=== PATIENT | female | born 1945 | race African-American/Black ===

== ENCOUNTER 2021-12-01 10:03 | Outpatient (REF) | payer OTHER, SELFPAY ==
[2021-12-01 10:27] LABS: MANUAL DIFF FLAG NO
[2021-12-01 10:46] LABS: Basophils Percent Auto 0.4 % (0-2); Eosinophils Absolute Auto 0.1 X10*3/uL (0.0-0.4); Eosinophils Percent Auto 1.5 % (0-4); Hematocrit 43.7 % (37.0-47.0); Hemoglobin 14.3 g/dl (12.0-16.0); Imm Gran Abs Auto 0.02 X10*3/uL (0.00-0.03); Imm Gran Pct Auto 0.4 % (0.0-0.4); Lymphocytes Absolute Auto 2.4 X10*3/uL (1.2-4.9); Lymphocytes Percent Auto 43.8 % (20-40); Mean Corpuscular HGB Conc 32.7 g/dl (31.0-35.0); Mean Corpuscular Hemoglobin 28.5 pg (27.0-33.0); Mean Corpuscular Volume 87.2 fL (80.0-98.0); Mean Platelet Volume 10.7 fL (9.4-12.3); Monocytes Absolute Auto 0.3 X10*3/uL (0.1-1.2); Monocytes Percent Auto 6.3 % (2-11); Neutrophils Absolute Auto 2.6 x10*3/uL (2.0-8.3); Neutrophils Percent Auto 47.6 % (45-73); Platelet Count 235 X10*3/uL (160-400); Red Blood Count 5.01 X10*6/uL (4.20-5.50); Red Cell Distribution Width 12.8 % (11.0-16.0); White Blood Count 5.4 X10*3/uL (4.8-10.8)
[2021-12-01 11:21] LABS: Alanine Aminotransferase 33 U/L (0-31); Alkaline Phosphatase 130 U/L (39-117); Anion Gap 13 (12-20); Aspartate Amino Transferase 24 U/L (5-31); Bilirubin Total 0.7 mg/dL (0.0-1.0); Blood Urea Nitrogen 16 mg/dL (9-16); Calcium 9.6 mg/dL (8.4-10.2); Carbon Dioxide 26 mmol/L (22-29); Chloride 107 mmol/L (96-108); Cholesterol 239 mg/dL; Estimated Glomerular Filt Rate > 60; Glucose Fasting 120 mg/dL (60-99); HDL Cholesterol 42 mg/dL; LDL Cholesterol Calculated 166 mg/dl; Potassium 4.8 mmol/L (3.3-5.1); Sodium 141 mmol/L (135-145); Total Protein 7.4 g/dL (6.5-8.0); Triglycerides 155 mg/dL
[2021-12-01 11:40] LABS: HIV AB/AG Nonreactive (Nonreactive); HIV Num 1 0.05 S/CO (0.00-0.99); ~HepC Num1 0.16 S/CO (0.00-0.79); ~Hepatitis C Antibody Nonreactive (Nonreactive)
[2021-12-01 11:41] LABS: TSH reflex Free T4 2.52 uIU/mL (0.32-4.0)
== END 2021-12-01 10:04 | disposition home or self-care (01) ==
LOC: HO.LAB 10:03
PROVIDERS: PCP Nurse Practitioner Family; Visit Provider Nurse Practitioner Family
DX: I10 Essential (primary) hypertension (principal); E78.00 Pure hypercholesterolemia, unspecified; R19.5 Other fecal abnormalities; Z13.0 Encounter for screening for diseases of the blood and blood-forming organs and certain disorders involving the immune mechanism; Z11.4 Encounter for screening for human immunodeficiency virus [HIV]; Z11.59 Encounter for screening for other viral diseases; Z76.89 Persons encountering health services in other specified circumstances
CPT/HCPCS: 36415; 80053; 80061; 84443; 85025; 86803; 87389

== ENCOUNTER 2021-12-30 09:34 | Outpatient (REF) | payer OTHER, SELFPAY ==
--- NOTE | ~2021-12-30 | MM_ITS ---
EXAMINATION: MM SCREENING DIGITAL BREAST TOMOSYNTHESIS, BILATERAL CLINICAL INFORMATION: Screening. Asymptomatic. Prior mammography over decades ago and no longer available. Age 76. No known family history breast cancer. The lifetime risk of breast cancer based on the Tyrer-Cuzick Model is 3%. COMPARISON: None (current study represents new baseline exam). TECHNIQUE: Digital breast tomosynthesis is performed in both the craniocaudal and mediolateral oblique views along with computer-aided detection (CAD). Synthesized 2D images are generated from the tomosynthesis. FINDINGS: There are scattered areas of fibroglandular density (ACR BI-RADS breast composition Category b). There are no significant masses, abnormal calcifications, or other abnormalities. No architectural abnormality. The axilla and skin contours are unremarkable. MM/MM tomosynthesis screening BI IMPRESSION: No mammographic evidence of malignancy. ASSESSMENT: BI-RADS 1: Negative RECOMMENDATION: Routine annual mammography screening. This patient's information was entered into a reminder system with a target due date for their next mammogram.
== END 2021-12-30 09:35 | disposition home or self-care (01) ==
LOC: HO.MAMMO 09:34
PROVIDERS: PCP Nurse Practitioner Family; Visit Provider Nurse Practitioner Family
DX: Z12.31 Encounter for screening mammogram for malignant neoplasm of breast (principal)
CPT/HCPCS: 77063; 77067

== ENCOUNTER 2021-12-31 12:52 | Outpatient (REF) | payer OTHER, SELFPAY ==
--- NOTE | ~2021-12-31 | MM_ITS ---
EXAMINATION: BONE DENSITOMETRY CLINICAL INDICATION: Menopause. COMPARISON: None (current study represents initial baseline exam). TECHNIQUE: Using a Ninite DXA System (software version: 13.1) manufactured by [employer], dual-energy x-ray absorptiometry was performed of the lumbar spine and left hip. The images are of good technical quality. Summary results are attached. FINDINGS: AP SPINE L1-L4: BMD 1.401 g/cm2, Z-score 1.8, T-score 1.8, normal. LEFT FEMUR, NECK: BMD 1.054 g/cm2, Z-score 0.4, T-score 0.1, normal. LEFT FEMUR, TOTAL: BMD 1.179 g/cm2, Z-score 1.3, T-score 1.4, normal. IDENTIFIED RISK FACTORS: Menopause. HISTORY OF FRACTURE: None listed. MEDICATIONS: None listed. MM/XR DEXA axial skeleton IMPRESSION: 1. DIAGNOSIS: Normal bone density based on the lowest T-score value of 0.1 in the femoral neck applying World Health Organization criteria. 2. 10-YEAR FRACTURE RISK PREDICTION, FRAX: According to the guidelines, FRAX calculation should only be performed on patients in the osteopenia bone density category. Therefore, FRAX was not performed on this patient. 3. Treatment Recommendations: NOF guidelines recommend consideration for treatment in postmenopausal women and men age 50 and older presenting with the following: -A hip or vertebral (clinical or morphometric) fracture. -T-score less than or equal to -2.5 at the femoral neck or spine after appropriate evaluation to exclude secondary causes. -Low bone mass at the hip or spine and a 10-year fracture probability by FRAX of greater than or equal to 3% for hip fracture or greater than or equal to 20% for major osteoporotic fracture based on the [place] adapted WHO algorithm. 4. Other Recommendations: All treatment decisions require clinical judgment and consideration of individual patient factors, including patient preferences, comorbidities, previous drug use, risk factors not captured in the FRAX model (e.g. frailty, falls, vitamin D deficiency, increased bone turnover, interval significant decline in bone density) and possible under or overestimation of fracture risk by FRAX. FUTURE SCAN RECOMMENDATION: People with diagnosed cases of osteoporosis or at high risk for fracture should have regular bone mineral density tests. For patients eligible for Medicare, routine testing is allowed once every 2 years. The testing frequency can be increased to one year for patients who have rapidly progressing disease, those who are receiving or discontinuing medical therapy to restore bone mass, or have additional risk factors.
== END 2021-12-31 12:53 | disposition home or self-care (01) ==
LOC: HO.MAMMO 12:52
PROVIDERS: Visit Provider Nurse Practitioner Family
DX: Z13.820 Encounter for screening for osteoporosis (principal); Z78.0 Asymptomatic menopausal state
CPT/HCPCS: 77080

== ENCOUNTER 2022-01-01 10:03 | Outpatient (REF) | payer OTHER, SELFPAY ==
[2022-01-01 11:06] LABS: Estimated Average Glucose 131 mg/dL; Hemoglobin A1c % 6.2 %
[2022-01-01 11:38] LABS: Alanine Aminotransferase 21 U/L (0-31); Albumin Level 4.1 g/dL (3.5-5.0); Alkaline Phosphatase 143 U/L (39-117); Aspartate Amino Transferase 18 U/L (5-31); Bilirubin Direct 0.2 mg/dL (0.0-0.5); Bilirubin Total 0.6 mg/dL (0.0-1.0); Total Protein 7.3 g/dL (6.5-8.0)
== END 2022-01-01 10:04 | disposition home or self-care (01) ==
LOC: HO.LAB 10:03
PROVIDERS: Visit Provider Nurse Practitioner Family
DX: R73.01 Impaired fasting glucose (principal); R79.89 Other specified abnormal findings of blood chemistry
CPT/HCPCS: 36415; 80076; 83036

== ENCOUNTER 2022-02-19 10:00 | Outpatient (REF) | payer OTHER, SELFPAY ==
[2022-02-23 14:26] LABS: HPV mRNA E6/E7 rflx Not Detected (Not Detected)
== END 2022-02-19 10:01 | disposition home or self-care (01) ==
LOC: HO.LAB 10:00
PROVIDERS: PCP Nurse Practitioner Family; Visit Provider Advanced Practice Midwife
DX: Z01.419 Encounter for gynecological examination (general) (routine) without abnormal findings (principal); Z11.51 Encounter for screening for human papillomavirus (HPV)
CPT/HCPCS: 87624; 88142

== ENCOUNTER 2022-04-27 07:59 | Outpatient (REF) | payer OTHER, SELFPAY ==
[2022-04-27 08:29] LABS: MANUAL DIFF FLAG NO
[2022-04-27 08:36] LABS: Basophils Percent Auto 0.3 % (0-2); Eosinophils Absolute Auto 0.1 X10*3/uL (0.0-0.4); Eosinophils Percent Auto 1.4 % (0-4); Hematocrit 41.8 % (37.0-47.0); Hemoglobin 13.9 g/dl (12.0-16.0); Imm Gran Abs Auto 0.01 X10*3/uL (0.00-0.03); Imm Gran Pct Auto 0.2 % (0.0-0.4); Lymphocytes Absolute Auto 2.6 X10*3/uL (1.2-4.9); Mean Corpuscular HGB Conc 33.3 g/dl (31.0-35.0); Mean Corpuscular Hemoglobin 28.4 pg (27.0-33.0); Mean Corpuscular Volume 85.5 fL (80.0-98.0); Mean Platelet Volume 10.1 fL (9.4-12.3); Monocytes Absolute Auto 0.4 X10*3/uL (0.1-1.2); Monocytes Percent Auto 7.4 % (2-11); Neutrophils Absolute Auto 2.8 x10*3/uL (2.0-8.3); Neutrophils Percent Auto 46.7 % (45-73); Platelet Count 223 X10*3/uL (160-400); Red Blood Count 4.89 X10*6/uL (4.20-5.50); Red Cell Distribution Width 13.2 % (11.0-16.0); White Blood Count 5.9 X10*3/uL (4.8-10.8)
[2022-04-27 08:54] LABS: Alanine Aminotransferase 21 U/L (0-31); Albumin Level 4.1 g/dL (3.5-5.0); Alkaline Phosphatase 122 U/L (39-117); Anion Gap 12 (12-20); Aspartate Amino Transferase 17 U/L (5-31); Blood Urea Nitrogen 9 mg/dL (9-16); Calcium 8.9 mg/dL (8.4-10.2); Carbon Dioxide 25 mmol/L (22-29); Chloride 104 mmol/L (96-108); Cholesterol 224 mg/dL; Estimated Glomerular Filt Rate > 60; Glucose Fasting 124 mg/dL (60-99); HDL Cholesterol 42 mg/dL; LDL Cholesterol Calculated 149 mg/dl; Potassium 3.9 mmol/L (3.3-5.1); Sodium 137 mmol/L (135-145); Total Protein 7.2 g/dL (6.5-8.0); Triglycerides 167 mg/dL
== END 2022-04-27 08:00 | disposition home or self-care (01) ==
LOC: HO.LAB 07:59
PROVIDERS: PCP Nurse Practitioner Family; Visit Provider Nurse Practitioner Family
DX: E78.00 Pure hypercholesterolemia, unspecified (principal); I10 Essential (primary) hypertension
CPT/HCPCS: 36415; 80053; 80061; 85025

== ENCOUNTER 2023-01-01 10:26 | Outpatient (REF) | payer OTHER, SELFPAY ==
--- NOTE | ~2023-01-01 | MM_ITS ---
EXAMINATION: MM SCREENING DIGITAL BREAST TOMOSYNTHESIS, BILATERAL CLINICAL INFORMATION: Screening. Asymptomatic. The lifetime risk of breast cancer based on the Tyrer-Cuzick Model is 3%. COMPARISON: Mammography: 12/30/2021 (new baseline). TECHNIQUE: Digital breast tomosynthesis is performed in both the craniocaudal and mediolateral oblique views along with computer-aided detection (CAD). Synthesized 2D images are generated from the tomosynthesis. FINDINGS: There are scattered areas of fibroglandular density (ACR BI-RADS breast composition Category b). There are no significant masses, abnormal calcifications, or other abnormalities. No architectural abnormality or developing density or significant change from prior new baseline exam. MM/MM tomosynthesis screening BI IMPRESSION: No mammographic evidence of malignancy. ASSESSMENT: BI-RADS 1: Negative RECOMMENDATION: Routine annual mammography screening. This patient's information was entered into a reminder system with a target due date for their next mammogram.
== END 2023-01-01 10:27 | disposition home or self-care (01) ==
LOC: HO.MAMMO 10:26
PROVIDERS: PCP Nurse Practitioner Family; Visit Provider Nurse Practitioner Family
DX: Z12.31 Encounter for screening mammogram for malignant neoplasm of breast (principal)
CPT/HCPCS: 77063; 77067

== ENCOUNTER 2023-02-24 08:52 | Outpatient (REF) | payer OTHER, SELFPAY | END 2023-02-24 08:53 | disposition home or self-care (01) | LOC: HO.LAB 08:52 | PROVIDERS: PCP Nurse Practitioner Family; Visit Provider Nurse Practitioner Family | DX: Z13.89 Encounter for screening for other disorder (principal) ==

== ENCOUNTER 2023-08-26 08:57 | Outpatient (REF) | payer OTHER, SELFPAY ==
[2023-08-26 09:38] LABS: Hematocrit 43.1 % (37.0-47.0); Hemoglobin 14.2 g/dl (12.0-16.0); Mean Corpuscular HGB Conc 32.9 g/dl (31.0-35.0); Mean Corpuscular Hemoglobin 28.4 pg (27.0-33.0); Mean Corpuscular Volume 86.2 fL (80.0-98.0); Mean Platelet Volume 10.3 fL (9.4-12.3); Platelet Count 231 X10*3/uL (160-400); Red Cell Distribution Width 13.4 % (11.0-16.0); White Blood Count 6.3 X10*3/uL (4.8-10.8)
[2023-08-26 10:04] LABS: Alanine Aminotransferase 20 U/L (0-31); Alkaline Phosphatase 117 U/L (39-117); Anion Gap 13 (12-20); Aspartate Amino Transferase 18 U/L (5-31); Bilirubin Total 0.8 mg/dL (0.0-1.0); Blood Urea Nitrogen 18 mg/dL (9-16); Calcium 9.5 mg/dL (8.4-10.2); Carbon Dioxide 25 mmol/L (22-29); Chloride 105 mmol/L (96-108); Cholesterol 217 mg/dL (<200); Estimated Glomerular Filt Rate > 60; Glucose Fasting 108 mg/dL (60-99); HDL Cholesterol 44 mg/dL (>40); LDL Cholesterol Calculated 148 mg/dL (<100); Potassium 3.8 mmol/L (3.3-5.1); Sodium 139 mmol/L (135-145); Total Protein 7.4 g/dL (6.5-8.0); Triglycerides 129 mg/dL (<150)
== END 2023-08-26 08:58 | disposition home or self-care (01) ==
LOC: HO.LAB 08:57
PROVIDERS: PCP Nurse Practitioner Family; Visit Provider Nurse Practitioner Family
DX: I10 Essential (primary) hypertension (principal); R73.01 Impaired fasting glucose
CPT/HCPCS: 36415; 80053; 80061; 85027

== ENCOUNTER 2023-08-27 08:45 | Outpatient (AMB) | payer OTHER, SELFPAY ==
[2023-08-27 08:50] VITALS: BP 152/80; PULSE 56; O2SAT 98; BMI 34.5
--- NOTE | 2023-08-27 08:50 | MHC.PC.OV ---
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 Allergies lisinopril Adverse Reaction (Intermediate, Verified 08/27/23 09:10) Cough Medication List - Last Reconciled 08/27/23 by ERNST Kate amlodipine 5 mg PO DAILY blood pressure monitor As directed Tobacco use date assessed: 08/27/23 Fall risk assessment: No Falls in past year Last assessed Fall Risk: 08/27/23 Dental Screening Dental Screen Date: 08/27/23 Did you have a dental visit in the last 12 months?: No Did you have a dental problem in the last 6 months where you did not have access to dental care?: No HPI F/U HTN HPI Details Patient is a 77-year-old female who presents today to follow-up on hypertension. Medical history significant for elevated fasting glucose, hypertension, obesity. Patient reports that she is compliant with amlodipine. She did not take her amlodipine this morning and blood pressure is elevated, patient denies shortness of breath, chest pain, or headache. Recent blood work results reviewed with the patient. Patient was encouraged to monitor her blood pressures at home. [facility] Medical History (Updated 08/27/23 @ 09:25 by ERNST Kate) Elevated alkaline phosphatase level Elevated LFTs Hypertension Encounter to establish care Surgical History No pertinent past surgical history Family History Mother Hypertension Sister Hypertension Social History Housing: Apartment Alcohol intake: current Alcohol intake frequency: a few times a week Alcohol type: beer Patient Tobacco Use Status: Never used Tobacco e-Cigarette/Vaping Use: Never Used Second Hand Smoke Exposure: No service: No Current occupational status: retired Cognitive needs: No Hearing needs: No Vision needs: No Questionnaire PHQ-9 Over the last 2 weeks, how often have you been bothered by any of the following problems? 1. Little interest or pleasure in doing things: not at all 2. Feeling down, depressed, or hopeless: not at all 3. Trouble falling or staying asleep, or sleeping too much: not at all 4. Feeling tired or having little energy: not at all 5. Poor appetite or overeating: not at all 6. Feeling bad about yourself - or that you are a failure or have let yourself or your family down: not at all 7. Trouble concentrating on things, such as reading the newspaper or watching television: not at all 8. Moving or speaking so slowly that other people could have noticed. Or the opposite - being so fidgety or restless that you have been moving around a lot more than usual: not at all 9. Thoughts that you would be better off or of hurting yourself in some way: not at all Total score: 0 Depression Screening Interpretation: Negative Depression Screening Done: Yes 16363 - PHQ-9 Billing: Yes Source: Developed by Drs. Addy Paredes, Tiffanie Graham, Sawyer Rivera and colleagues, with an educational sd from [employer]. Thrive Questionnaire Date Thrive assessed: 02/24/23 AUDIT C Alcohol Use Questionnaire (AUDIT-C) 1. How often do you have a drink containing alcohol?: 2-3 times a week 2. How many drinks containing alcohol do you have on a typical day when you are drinking?: 1 or 2 3. How often do you have six or more drinks on one occasion?: Never Total Score: 3 Score Reviewed/Action Taken: Yes PETER-7 AMB Questionnaire PETER-7 Date PETER - 7 assessed: 02/24/23 Source: Developed by Drs. Addy Paredes, Sawyer Armstrong and colleagues, with an educational sd from [employer]. Review of Systems Const Denies body aches, Denies chills, Denies fever(s) and Denies headache(s) Eyes Denies change in vision ENT Denies dizziness, Denies otalgia, Denies headache(s), Denies nasal discharge, Denies sinus pain and Denies sore throat Card Denies chest pain, Denies edema, Denies lightheadedness and Denies dyspnea Resp Denies cough, Denies dyspnea and Denies wheezing GI Denies abdominal pain Denies dysuria Musc Denies myalgias Skin/Breast Denies rash Neuro Denies dizziness and Denies headache(s) Aller/Immun Denies wheezing Physical exam (Primary Care) Vital Signs: Last Vital Signs Pulse 56 08/27/23 08:50 BP 152/80 H 08/27/23 08:50 Pulse Ox 98 08/27/23 08:50 Oxygen Delivery Method Room Air 08/27/23 08:50 BMI result Body Mass Index 34.5 Tobacco/Smoking Status: Tobacco use Status Tobacco use date assessed 08/27/23 08/27/23 08:55 Patient Tobacco Use Status Never used Tobacco 08/27/23 08:55 e-Cigarette/Vaping Use Never Used 08/27/23 08:55 PHQ-9: PHQ-9 Score PHQ-9: Total score 0 08/27/23 08:55 Depression Screening Interpretation: Negative Thrive Assessment: Date of Thrive Assessment Date Thrive assessed 02/24/23 08/27/23 08:55 Const General: cooperative and no acute distress Orientation/consciousness: patient oriented x3 HENMT Head: Yes normocephalic and Yes atraumatic Face and sinus: Yes sinuses nontender Mouth: oropharynx normal and moist mucous membranes Throat: Yes posterior oropharynx normal Eyes General: appearance normal, both eyes and all related structures Neck Neck: Yes normal visual inspection, Yes full ROM and Yes no lymphadenopathy Resp Effort & Inspection: normal respiratory effort and able to speak in complete sentences Auscultation: clear to auscultation bilaterally, no crackles, no rales, no rhonchi and no wheezes Cardio Rate: regular rate Rhythm: regular rhythm Heart sounds: S1 normal heart sound present, S2 normal heart sound present and no murmurs GI Auscultation: normal bowel sounds Skin General skin exam: no rashes or lesions noted Neuro General: patient oriented x3 Gait exam (Neuro): Normal gait present Extrem General: Yes full ROM and No edema Assessment and Plan Assessment & Plan (1) Hypertension: Code(s): I10 - Essential (primary) hypertension Plan: Goal BP equal or less than 140/90, patient did not take her blood pressure medication this morning yet Continue amlodipine 5 mg daily Reinforced weight loss and low-sodium diet Patient was encouraged to monitor her blood pressures at home (2) Elevated fasting glucose: Code(s): R73.01 - Impaired fasting glucose Plan: Continue to monitor Low-carbohydrate diet Fasting glucose 108 08/2023 A1c 6.2 12/2021 (3) Obesity (BMI 30-39.9): Code(s): E66.9 - Obesity, unspecified Plan: Healthy food choices and exercise as tolerated (4) Hyperlipidemia: Code(s): E78.5 - Hyperlipidemia, unspecified Plan: LDL 148 08/2023, goal less than 130 Reinforced low-cholesterol diet, if at recheck cholesterol still elevated will start low-dose statin Orders: Orders TSH reflex Free T4 Today I10 - Essential (primary) hypertension Lipid Panel Today I10 - Essential (primary) hypertension Comprehensive [place]. Panel Fast Today I10 - Essential (primary) hypertension Hemoglobin A1c Today R73.01 - Impaired fasting glucose Medications: Refilled amlodipine 5 mg PO DAILY 90 tabs 1RF blood pressure monitor As directed 1 ea 0RF I10 - Essential (primary) hypertension Coding Level of Care Code Est Pt Level 3 (83266) Diagnoses Hypertension I10 Elevated fasting glucose R73.01 Obesity (BMI 30-39.9) E66.9 Hyperlipidemia E78.5
[2023-08-27 09:17] VITALS: BP 156/78
== END 2023-08-27 09:20 | disposition home or self-care (01) ==
PROVIDERS: Visit Provider Nurse Practitioner Family
DX: I10 Essential (primary) hypertension (principal); R73.01 Impaired fasting glucose; E66.9 Obesity, unspecified; Z68.34 Body mass index [BMI] 34.0-34.9, adult; E78.5 Hyperlipidemia, unspecified
CPT/HCPCS: 99213

== ENCOUNTER 2025-02-22 12:41 | Emergency (ER) | payer OTHER, SELFPAY ==
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
[2025-02-22 13:10] VITALS: BP 191/82; PULSE 72; RESP 18; TEMP 37; O2SAT 98; BMI 34.4
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
== END 2025-02-22 15:03 | disposition home or self-care (01) ==
PROVIDERS: Emergency Provider Emergency Medicine; PCP Internal Medicine
DX: S00.81XA Abrasion of other part of head, initial encounter (principal); V43.62XA Car passenger injured in collision with other type car in traffic accident, initial encounter; M25.511 Pain in right shoulder; I10 Essential (primary) hypertension; Y93.89 Activity, other specified; Y92.414 Local residential or business street as the place of occurrence of the external cause; Y99.9 Unspecified external cause status
CPT/HCPCS: 70450; 72125; 99281; 99284

== ENCOUNTER → 2025-02-22 13:13 | Outpatient (BNV) | payer MEDICARE, SELFPAY | PROVIDERS: Emergency Provider Emergency Medicine; PCP Internal Medicine; Visit Provider Radiology Diagnostic Radiology | DX: M47.892 Other spondylosis, cervical region (principal); R51.9 Headache, unspecified; V89.2XXA Person injured in unspecified motor-vehicle accident, traffic, initial encounter | CPT/HCPCS: 70450; 72125 ==

== ENCOUNTER 2025-08-15 10:53 | Outpatient (REF) | payer MEDICARE, SELFPAY ==
[2025-08-15 18:26] LABS: MANUAL DIFF FLAG NO
[2025-08-15 18:34] LABS: Hematocrit 43.1 % (37.0-47.0); Hemoglobin 14.3 g/dl (12.0-16.0); Imm Gran Abs Auto 0.01 X10*3/uL (0.00-0.03); Imm Gran Pct Auto 0.2 % (0.0-0.4); Lymphocytes Absolute Auto 2.2 X10*3/uL (1.2-4.9); Mean Corpuscular HGB Conc 33.2 g/dl (31.0-35.0); Mean Corpuscular Hemoglobin 28.5 pg (27.0-33.0); Mean Corpuscular Volume 86.0 fL (80.0-98.0); NRBC Abs Auto 0.000 X10*3/uL (0.0-0.012); NRBC Pct Auto 0.0 /100WBC (0.0-0.2); Platelet Count 233 X10*3/uL (160-400); Red Blood Count 5.01 X10*6/uL (4.20-5.50); White Blood Count 5.8 X10*3/uL (4.8-10.8)
[2025-08-15 19:10] LABS: Alanine Aminotransferase 18 U/L (0-31); Albumin Level 4.2 g/dL (3.5-5.0); Alkaline Phosphatase 120 U/L (39-117); Anion Gap 12 (12-20); Aspartate Amino Transferase 26 U/L (5-31); Blood Urea Nitrogen 15 mg/dL (9-16); Calcium 9.6 mg/dL (8.4-10.2); Carbon Dioxide 25 mmol/L (22-29); Chloride 108 mmol/L (96-108); Cholesterol 225 mg/dL (<200); Estimated Glomerular Filt Rate 45; HDL Cholesterol 41 mg/dL (>40); Magnesium 2.1 mg/dL (1.6-2.6); Potassium 4.3 mmol/L (3.3-5.1); Sodium 141 mmol/L (135-145); Total Protein 7.4 g/dL (6.5-8.0); Triglycerides 208 mg/dL (<150)
[2025-08-15 19:26] LABS: Folate 7.5 ng/mL (> or = 4.0); Vitamin B12 267 pg/mL (200-900)
[2025-08-16 08:06] LABS: HBS Num1 1.21 mIU/mL (0-7.99); HBsAGNum1 0.39 S/CO (0.00-0.99); HIV Num 1 0.06 S/CO (0.00-0.99); Hepatitis B Surface Antigen Negative (Negative); ~HepC Num1 0.09 S/CO (0.00-0.79); ~Hepatitis B Surface Antibody NONREACTIVE (Nonreactive); ~Hepatitis C Antibody Nonreactive (Nonreactive)
[2025-08-20 02:03] LABS: VITAMIN D (1,25 OH) D3 47 pg/mL; Vit D (1,25-Dihydroxy) Total 47 pg/mL (18-72); Vitamin D (1,25 OH) D2 <8 pg/mL
== END 2025-08-15 10:54 | disposition home or self-care (01) ==
LOC: HO.HKASLDS 10:53
PROVIDERS: PCP Student in an Organized Health Care Education/Training Program; Visit Provider Student in an Organized Health Care Education/Training Program
DX: I12.9 Hypertensive chronic kidney disease with stage 1 through stage 4 chronic kidney disease, or unspecified chronic kidney disease (principal); E66.811 Obesity, class 1; M19.90 Unspecified osteoarthritis, unspecified site; R73.03 Prediabetes; R79.89 Other specified abnormal findings of blood chemistry; N18.9 Chronic kidney disease, unspecified; R74.8 Abnormal levels of other serum enzymes; Z11.3 Encounter for screening for infections with a predominantly sexual mode of transmission; Z68.34 Body mass index [BMI] 34.0-34.9, adult
CPT/HCPCS: 36415; 80053; 80061; 82607; 82652; 82746; 83036; 83735; 84443; 85025; 86706; 86803; 87340; 87389; 96127; 99202

== ENCOUNTER 2025-08-15 10:53 | Outpatient (AMB) | payer MEDICARE, SELFPAY ==
[2025-08-15 10:56] VITALS: BP 160/86; PULSE 70; RESP 20; TEMP 36.4; O2SAT 95; BMI 34.9
--- NOTE | 2025-08-15 10:56 | A.OFFPC_ITS ---
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 Essential Hypertension: - History of untreated elevated blood pr essure. - Previously on Amlodipine 5 mg, with no follow-up [facility]-[place]. - Current blood pressure of 160/86 mmHg recorded. Arthritis: - Mentioned without specific detail. Review of Systems - Cardiovascular: Reports history of ericka vated blood pressure. - Neurological: Denies dizziness or head aches. - Sleep: Denies waking up gasping for ai r; denies being told of breathing cessation during sleep. - Gastrointestinal: Reports normal bowel function. - General: Denies daytime fatigue or exc essive tiredness. 10-point ROS reviewed and negative excep t as noted in HPI Past Medical History - History of elevated blood pressure, wi th an absence of follow-up care after a prior physician retired. - Arthritis reported without specifics. Health Maintenance - Mammograms performed annually: last re sult was good. - Pap smear: advised to not be needed cu rrently. - Colonoscopy performed with normal resu lts. - No previous bone density scan (DEXA) c onducted; recommendation for initiation discussed. - Routine fall screening implied but not detailed in conversation. Physical Exam General: Well-appearing, in no acute distress. Vital signs: Blood pressure is 160/86. HEENT: Normocephalic, atraumatic. PERRLA, EOMI. Conjunctiva clear, sclera anicteric. Oropharynx clear, mucous membranes moist. TMs intact bilaterally. Neck: Supple, no lymphadenopathy, no thyromegaly, no JVD or carotid bruits. Cardiovascular: RRR, normal S1/S2, no murmurs, rubs, or gallops. Peripheral pulses 2+ and symmetric. No edema. Respiratory: Lungs clear to auscultation bilaterally, no wheezes, rales, or rhonchi. Normal effort. Abdomen: Soft, non-tender, non-distended. Normoactive bowel sounds. No hepatosplenomegaly, no masses. MSK: Full range of motion, no joint swelling or deformity. Normal gait. Skin: Warm, dry, intact. No rashes, lesions, or pallor. Neuro: Alert and oriented x3. Cranial nerves II-XII intact. Strength 5/5 throughout. Sensation intact. Reflexes 2+ symmetric. Normal coordination and gait. Psych: Appropriate mood and affect. Normal judgment and insight. Plan 1. Essential Hypertension - Start Amlodipine 10 mg once daily. - Perform CBC, comprehensive metabolic p tami, lipid panel, thyroid function t est, and HbA1c to establish a baseline. - Instruct patient to monitor blood pres sure at home twice daily. Discussion Notes During the visit, we reviewed the patient's history of elevated blood pressure and discussed the necessity of better control. I suggested starting Amlodipine 10 mg daily, emphasizing that low-dose therapy was not providing sufficient management. I discussed the side effects of Amlodipine, such as potential ankle swelling. We also agreed on getting a baseline set of labs, including a CBC, comprehensive metabolic panel, lipid profile, thyroid function, and HbA1c to fully assess the patient's overall health. It was determined that the patient should acquire a home blood pressure monitor to provide readings twice daily, which will help guide further management. We briefly discussed arthritis without detailed intervention. Patient was informed and verbally consented to the use of an ambient scribe for clinic note documentation during this visit. Patient Instructions - Begin taking Amlodipine 10 mg daily as prescribed. - Consider obtaining a blood pressure mo nitor: Take your blood pressure twice daily and note the results. - Complete blood tests as ordered, inclu ding a comprehensive metabolic panel and lipid profile. - Monitor for side effects such as ankle swelling. If these occur, contact our office. - Follow up as instructed for additional management and blood pressure review. Total time spent caring for the patient today was 30 minutes. This includes time spent before the visit reviewing the chart, time spent documenting, and time spent reviewing laboratory results, diagnostic imaging, medications, performing a medically necessary evaluation, counseling on diagnoses, care coordination, ordering appropriate tests, ordering appropriate medications. [facility] Medical History Elevated alkaline phosphatase level Elevated LFTs Hypertension Encounter to establish care Surgical History No pertinent past surgical history Family History Mother Hypertension Sister Hypertension Social History Housing: Apartment Alcohol intake: current Alcohol intake frequency: a few times a week Alcohol type: beer Patient Tobacco Use Status: Never used Tobacco e-Cigarette/Vaping Use: Never Used Second Hand Smoke Exposure: No service: No Current occupational status: retired Cognitive needs: No Hearing needs: No Vision needs: Yes (rx glasses) Questionnaire PHQ-9 Over the last 2 weeks, how often have you been bothered by any of the following problems? 1. Little interest or pleasure in doing things: not at all 2. Feeling down, depressed, or hopeless: not at all 3. Trouble falling or staying asleep, or sleeping too much: not at all 4. Feeling tired or having little energy: not at all 5. Poor appetite or overeating: not at all 6. Feeling bad about yourself - or that you are a failure or have let yourself or your family down: not at all 7. Trouble concentrating on things, such as reading the newspaper or watching television: not at all 8. Moving or speaking so slowly that other people could have noticed. Or the opposite - being so fidgety or restless that you have been moving around a lot more than usual: not at all 9. Thoughts that you would be better off or of hurting yourself in some way: not at all Total score: 0 Source: Developed by Drs. Addy Paredes, Tiffanie Graham, Sawyer Rivera and colleagues, with an educational sd from [employer]. Thrive Questionnaire Date Thrive assessed: 08/15/25 I am a: Patient What is your living situation today?: I have a steady place to live Within the past 12 months, did the food you bought not last and you didn't have the money to get more?: Never true Within the past 12 months, did you worry whether your food would run out before you got money to buy more?: Never true Do you have trouble paying for medicines?: No Do you have trouble getting transportation to medical appointments?: No Do you have trouble paying your heating and electricity bill?: No Do you have trouble taking care of your child, family member or friend?: No Are you currently unemployed and looking for a job?: No Are you interested in more education?: No Please select the resources that you would like help with: None Currently or been in a relationship where the following occur: No concerns reported THRIVE Score: 0 AUDIT C Alcohol Use Questionnaire (AUDIT-C) 1. How often do you have a drink containing alcohol?: Monthly or less 2. How many drinks containing alcohol do you have on a typical day when you are drinking?: 1 or 2 3. How often do you have six or more drinks on one occasion?: Never Total Score: 1 PETER-7 AMB Questionnaire PETER-7 Date PETER - 7 assessed: 08/15/25 Feeling nervous, anxious, or on edge: 0 = Not at all Not being able to stop or control worryin = Not at all Trouble relaxin = Not at all Being so restless that it is hard to sit still: 0 = Not at all Becoming easily annoyed or irritable: 0 = Not at all Feeling afraid as if something awful might happen: 0 = Not at all Source: Developed by Drs. Addy Paredes, Tiffanie Graham, Sawyer Rivera and colleagues, with an educational sd from [employer]. Physical exam (Primary Care) BMI result Body Mass Index 34.9 Tobacco/Smoking Status: Tobacco use Status Tobacco use date assessed 08/15/25 08/15/25 10:57 Patient Tobacco Use Status Never used Tobacco 08/15/25 10:57 e-Cigarette/Vaping Use Never Used 08/15/25 10:57 PHQ-9: PHQ-9 Score PHQ-9: Total score 0 08/15/25 10:57 Thrive Assessment: Date of Thrive Assessment Date Thrive assessed 08/15/25 08/15/25 10:57 Currently or been in a relationship where the following occur: No concerns reported Coding Level of Care Code New Pt Level 4 (12239) Diagnoses Essential hypertension I10 Class 1 obesity E66.811 Elevated blood pressure reading R03.0 Arthritis M19.90 Assessment & Plan Assessment & Plan (1) Essential hypertension: Code(s): I10 - Essential (primary) hypertension Category: Medical (2) Class 1 obesity: Code(s): E66.811 - Obesity, class 1 (3) Elevated blood pressure reading: Code(s): R03.0 - Elevated blood-pressure reading, without diagnosis of hypertension (4) Arthritis: Code(s): M19.90 - Unspecified osteoarthritis, unspecified site Plan Orders: Orders Complete Blood Count Auto Diff Today Z13.9 - Encounter for screening, unspecified Hemoglobin A1c Today Z13.9 - Encounter for screening, unspecified Hepatitis B Surface Antibody Today Z13.9 - Encounter for screening, unspecified Hepatitis B Surface Antigen Today Z13.9 - Encounter for screening, unspecified Hepatitis C Antibody Today Z13.9 - Encounter for screening, unspecified UA CC w/rflx Micro + Cult Today Z13.9 - Encounter for screening, unspecified ECG 12 lead EKG Today I10 - Essential (primary) hypertension Comprehensive Met. Panel Today Z13.9 - Encounter for screening, unspecified HIV Ab/Ag Today Z13.9 - Encounter for screening, unspecified Lipid Panel Today Z13.9 - Encounter for screening, unspecified Magnesium Today Z13.9 - Encounter for screening, unspecified Microalbumin, Random (w Creat) Today Z13.9 - Encounter for screening, unspecified TSH reflex Free T4 Today Z13.9 - Encounter for screening, unspecified Vitamin B12 and Folate Today Z13.9 - Encounter for screening, unspecified Vitamin D 1,25 dihydroxy Today Z13.9 - Encounter for screening, unspecified Referrals Nurse Navigator Referral E66.811 - Obesity, class 1, I10 - Essential (primary) hypertension Medications: New blood pressure monitor As directed 1 ea 0RF I10 - Essential (primary) hypertension amlodipine 10 mg PO DAILY 30 tabs 0RF
== END 2025-08-15 11:28 | disposition home or self-care (01) ==
LOC: HO.HMCFMS 10:54
PROVIDERS: PCP Student in an Organized Health Care Education/Training Program; Visit Provider Student in an Organized Health Care Education/Training Program
DX: I10 Essential (primary) hypertension (principal); E66.811 Obesity, class 1; R03.0 Elevated blood-pressure reading, without diagnosis of hypertension; M19.90 Unspecified osteoarthritis, unspecified site

== ENCOUNTER 2025-08-29 10:52 | Outpatient (AMB) | payer MEDICARE, SELFPAY ==
[2025-08-29 10:56] VITALS: BP 201/91; PULSE 79; RESP 16; TEMP 36.3; O2SAT 95; BMI 35.0
--- NOTE | 2025-08-29 10:56 | A.OFFPC_ITS ---
Vital Signs 08/29/25 10:56 Height 5 ft 5 in Weight 210 lb 4 oz BMI 35.0 BP 201/91 H Blood Pressure Location Rt brachial Position Sitting Respiration 16 Pulse 79 Pulse Source Pulse Oximeter Temp 97.4 F Temp Source Oral Pulse Oximetry (%) 95 Oxygen Delivery Method Room Air Intake Visit Reasons: 2 week follow up Accompanied by: Daughter Allergies lisinopril Adverse Reaction (Intermediate, Verified 08/29/25 10:56) Cough Tobacco use date assessed: 08/29/25 Fall risk assessment: No Falls in past year Last assessed Fall Risk: 08/15/25 Dental Screening Dental Screen Date: 08/29/25 Did you have a dental visit in the last 12 months?: Yes Was dental information given to patient?: Patient has dentist HPI HPI Comments History of Present Illness Details Consent Patient was informed and verbally consented to the use of an ambient scribe for clinic note documentation during this visit. History of Present Illness The patient is a 79-year-old female presenting with management of hypertension and evaluation of kidney function. Essential Hypertension: The patient has been experiencing elevated blood pressure readings, with a recent measurement of 168/78 mmHg in the morning and lower readings in the afternoon. She has been on amlodipine for one week, but her blood pressure remains elevated, prompting the addition of valsartan to her regimen. Chronic Kidney Disease, Stage G3A: The patient has been diagnosed with chronic kidney disease, stage G3A, with a glomerular filtration rate of 45 mL/min/1.73 m?. She has not previously seen a clam grower, and a referral has been made for further evaluation. Prediabetes: The patient's hemoglobin A1c indicates prediabetes, and she has no prior diagnosis of diabetes. Lifestyle modifications and a referral to a registered radiologic technologist have been recommended to prevent progression to diabetes. Hyperlipidemia: The patient has elevated triglycerides at 208 mg/dL and LDL cholesterol at 143 mg/dL. Lifestyle changes, including dietary modifications, have been advised instead of medication at this time. Vitamin B12 Deficiency: The patient's vitamin B12 level is low at 267 pg/mL, and supplementation has been prescribed to address potential symptoms of deficiency. Medications: - Amlodipine 10 mg for hypertension Social History: - Nutrition: The patient consumes ice cr eam and cheese regularly, contributing to elevated cholesterol levels. Diagnostic Results: - Labs: White blood cells, red blood nas ls, hemoglobin, and platelets are within normal limits. - Labs: Sodium, potassium, and renal fun ction tests indicate mild to moderate chronic kidney disease. - Labs: Hemoglobin A1c indicates prediab etes. - Labs: Triglycerides are elevated at 20 8 mg/dL, and LDL cholesterol is elevated at 143 mg/dL. - Labs: Vitamin B12 level is low at 267 pg/mL. - Screening: Stool test for colon cancer was clear. Review of Systems 10-point ROS reviewed and negative excep t as noted in HPI Past Medical History Health Maintenance - Diet: Referral to a registered dietici an for dietary modifications to manage prediabetes and hyperlipidemia. - Screening: Colon cancer screening with stool test was completed and clear. Physical Exam General: Well-appearing, in no acute distress. Vital signs: Blood pressure readings have been elevated, with recent measurements including 168/78, 142/80, 150, 201/91, 160/86, and 160/70. HEENT: Normocephalic, atraumatic. PERRLA, EOMI. Conjunctiva clear, sclera anicteric. Oropharynx clear, mucous membranes moist. TMs intact bilaterally. Neck: Supple, no lymphadenopathy, no thyromegaly, no JVD or carotid bruits. Cardiovascular: RRR, normal S1/S2, no murmurs, rubs, or gallops. Peripheral pulses 2+ and symmetric. No edema. Respiratory: Lungs clear to auscultation bilaterally, no wheezes, rales, or rhonchi. Normal effort. Abdomen: Soft, non-tender, non-distended. Normoactive bowel sounds. No hepatosplenomegaly, no masses. MSK: Full range of motion, no joint swelling or deformity. Normal gait. Skin: Warm, dry, intact. No rashes, lesions, or pallor. Neuro: Alert and oriented x3. Cranial nerves II-XII intact. Strength 5/5 throughout. Sensation intact. Reflexes 2+ symmetric. Normal coordination and gait. Psych: Appropriate mood and affect. Normal judgment and insight. Plan 1. Essential Hypertension - Continue amlodipine 10 mg and add vals tariq to better control blood pressure. - Monitor blood pressure regularly and m aiteofiloain a log for follow-up visits. 2. Chronic Kidney Disease, Stage G3a - Referral to nephrology for further gato luation and management. - Valsartan added to protect renal funct ion. 3. Prediabetes - Referral to a registered radiologic technologist for dietary counseling to prevent progression to diabetes. - Lifestyle modifications recommended to lower hemoglobin A1c. 4. Hyperlipidemia - Lifestyle modifications recommended, i ncluding reducing intake of ice cream and cheese. - Follow-up lipid panel in six months to assess response to dietary changes. 5. Vitamin B12 Deficiency - Prescribe vitamin B12 supplementation to address deficiency and prevent symptoms. Discussion Notes During the visit, I discussed the importance of controlling blood pressure to prevent complications such as stroke and heart attack. We reviewed the addition of valsartan to the patient's regimen to enhance blood pressure control and protect renal function. I emphasized the need for regular blood pressure monitoring and maintaining a log for follow-up visits. We also discussed the patient's chronic kidney disease and the referral to nephrology for further evaluation. I highlighted the significance of lifestyle modifications to manage prediabetes and hyperlipidemia, including dietary changes and reducing intake of high-cholesterol foods. The patient was informed about the need for vitamin B12 supplementation to address her deficiency. We also reviewed the results of her colon cancer screening, which were clear. Patient Instructions - Take valsartan as prescribed to help c ontrol blood pressure. - Monitor blood pressure regularly and k eep a log for the next visit. - Follow dietary recommendations from [facility] registered radiologic technologist to manage prediabetes and hyperlipidemia. - Reduce intake of ice cream and cheese to lower cholesterol levels. - Take vitamin B12 supplements daily as prescribed. Medical Decision Making The patient's elevated blood pressure readings necessitated the addition of valsartan to her treatment regimen to achieve better control and protect renal function. Given her chronic kidney disease, a referral to nephrology was deemed necessary for specialized management. The patient's prediabetes and hyperlipidemia were addressed through lifestyle modifications, emphasizing dietary changes to prevent progression to diabetes and reduce cholesterol levels. Vitamin B12 supplementation was prescribed to correct her deficiency and prevent associated symptoms. The decision to avoid immediate pharmacological intervention for hyperlipidemia was based on the potential for lifestyle changes to yield improvements over the next six months. Total time spent caring for the patient today was 30 minutes. This includes time spent before the visit reviewing the chart, time spent documenting, and time spent reviewing laboratory results, diagnostic imaging, medications, performing a medically necessary evaluation, counseling on diagnoses, care coordination, ordering appropriate tests, ordering appropriate medication. [facility] Medical History (Updated 08/29/25 @ 11:20 by Eder Abbasi MD) Chronic kidney disease Prediabetes Elevated alkaline phosphatase level Elevated LFTs Hypertension Encounter to establish care Surgical History No pertinent past surgical history Family History Mother Hypertension Sister Hypertension Social History Housing: Apartment Alcohol intake: current Alcohol intake frequency: a few times a week Alcohol type: beer Patient Tobacco Use Status: Never used Tobacco e-Cigarette/Vaping Use: Never Used Second Hand Smoke Exposure: No service: No Current occupational status: retired Cognitive needs: No Hearing needs: No Vision needs: Yes (rx glasses) Questionnaire Thrive Questionnaire Date Thrive assessed: 08/15/25 I am a: Patient What is your living situation today?: I have a steady place to live Within the past 12 months, did the food you bought not last and you didn't have the money to get more?: Never true Within the past 12 months, did you worry whether your food would run out before you got money to buy more?: Never true Do you have trouble paying for medicines?: No Do you have trouble getting transportation to medical appointments?: No Do you have trouble paying your heating and electricity bill?: No Do you have trouble taking care of your child, family member or friend?: No Are you currently unemployed and looking for a job?: No Are you interested in more education?: No Please select the resources that you would like help with: None Currently or been in a relationship where the following occur: No concerns reported THRIVE Score: 0 AUDIT C Alcohol Use Questionnaire (AUDIT-C) 1. How often do you have a drink containing alcohol?: Monthly or less 2. How many drinks containing alcohol do you have on a typical day when you are drinking?: 1 or 2 3. How often do you have six or more drinks on one occasion?: Never Total Score: 1 PETER-7 AMB Questionnaire PETER-7 Date PETER - 7 assessed: 08/15/25 Source: Developed by Drs. Addy Paredes, Tiffanie Graham, Sawyer Rivera and colleagues, with an educational sd from [employer]. Physical exam (Primary Care) Vital Signs: Last Vital Signs Temp 97.4 F 08/29/25 10:56 Pulse 79 08/29/25 10:56 Resp 16 08/29/25 10:56 BP 201/91 H 08/29/25 10:56 Pulse Ox 95 08/29/25 10:56 Oxygen Delivery Method Room Air 08/29/25 10:56 BMI result Body Mass Index 35.0 Tobacco/Smoking Status: Tobacco use Status Tobacco use date assessed 08/29/25 08/29/25 10:59 Patient Tobacco Use Status Never used Tobacco 08/29/25 10:59 e-Cigarette/Vaping Use Never Used 08/29/25 10:59 Thrive Assessment: Date of Thrive Assessment Date Thrive assessed 08/15/25 08/29/25 10:59 Currently or been in a relationship where the following occur: No concerns reported Coding Level of Care Code Est Pt Level 4 (24959) Diagnoses Essential hypertension I10 Hyperlipidemia E78.5 Prediabetes R73.03 Chronic kidney disease N18.9 Elevated alkaline phosphatase level R74.8 Obesity (BMI 30-39.9) E66.9 Low vitamin B12 level E53.8 Assessment & Plan Assessment & Plan (1) Essential hypertension: Code(s): I10 - Essential (primary) hypertension Category: Medical (2) Hyperlipidemia: Code(s): E78.5 - Hyperlipidemia, unspecified Category: Medical (3) Prediabetes: Code(s): R73.03 - Prediabetes Category: Medical (4) Chronic kidney disease: Code(s): N18.9 - Chronic kidney disease, unspecified Category: Medical (5) Elevated alkaline phosphatase level: Code(s): R74.8 - Abnormal levels of other serum enzymes (6) Obesity (BMI 30-39.9): Code(s): E66.9 - Obesity, unspecified Category: Medical (7) Low vitamin B12 level: Code(s): E53.8 - Deficiency of other specified B group vitamins Plan Orders: Referrals Nurse Navigator Referral R73.03 - Prediabetes Nephrology Referral N18.9 - Chronic kidney disease, unspecified Medications: New amlodipine-valsartan 10-160 mg 1 tab PO DAILY 90 tabs 0RF cyanocobalamin (vitamin B-12) 5,000 mcg sublingual DAILY 90 tabs 0RF Discontinued amlodipine Discontinued Reason: Doctor's Order 10 mg PO DAILY 90 tabs 0RF
== END 2025-08-29 11:25 | disposition home or self-care (01) ==
LOC: HO.HMCFMS 10:52
PROVIDERS: PCP Internal Medicine; Visit Provider Student in an Organized Health Care Education/Training Program
DX: I12.9 Hypertensive chronic kidney disease with stage 1 through stage 4 chronic kidney disease, or unspecified chronic kidney disease (principal); E78.5 Hyperlipidemia, unspecified; R73.03 Prediabetes; N18.9 Chronic kidney disease, unspecified; R74.8 Abnormal levels of other serum enzymes; E66.9 Obesity, unspecified; E53.8 Deficiency of other specified B group vitamins

== ENCOUNTER 2025-08-29 10:52 | Outpatient (REF) | payer MEDICARE, SELFPAY ==
[2025-08-29 18:44] LABS: Appearance Urine Turbid; Glucose Urine UA Negative (Negative); PH 6.0 (5.0-9.0); Specific Gravity - Urine 1.025 (1.005-1.025); UMIC TRIGGER UACC YES
[2025-08-29 19:11] LABS: Microalbum/Creatinine Ratio Ur 5.7 ug/mg cr (<30)
== END 2025-08-29 10:53 | disposition home or self-care (01) ==
LOC: HO.HKASLDS 10:52
PROVIDERS: PCP Student in an Organized Health Care Education/Training Program; Visit Provider Student in an Organized Health Care Education/Training Program
DX: Z13.9 Encounter for screening, unspecified (principal); E78.5 Hyperlipidemia, unspecified; R73.03 Prediabetes; I12.9 Hypertensive chronic kidney disease with stage 1 through stage 4 chronic kidney disease, or unspecified chronic kidney disease; N18.9 Chronic kidney disease, unspecified; R74.8 Abnormal levels of other serum enzymes; E66.9 Obesity, unspecified; E53.8 Deficiency of other specified B group vitamins
CPT/HCPCS: 81001; 82043; 82570; 99212